=== PATIENT | male | born 1995 | race Caucasian/White ===

== ENCOUNTER 2018-12-03 06:25 | Day surgery (SDC) | payer OTHER ==
[~2018-12-03] VITALS: Ht 182.9 cm; Wt 93.0 kg
[2018-12-03] MEDS ORDERED: PHENYLEPHRINE 10 MG/ML VIAL ONE (08:24)
[2018-12-03] MEDS ORDERED: NEOMYCIN/POLYMYXIN/BACITRACIN OIN 15 GM TUBE TP ONE ×2 (08:24→08:44)
[2018-12-03] MEDS ORDERED: LIDOCAINE 1% 500 MG/50 ML VIAL ONE (08:24)
--- NOTE | 2018-12-03 08:34 | NUR ---
COOL AEROSOL AT 28% TO AEROSOL MASK SET UP IN PACU TESTED FUNCTIONING WELL
[2018-12-03] MEDS ORDERED: PHENYLEPHRINE 1% 15 ML BTL NS ONE (08:35)
[2018-12-03] MEDS ORDERED: guaiFENesin DM 200/20 MG-10 ML 10 ML UDC PO PRN (08:40)
[2018-12-03] MEDS ORDERED: PROMETHAZINE 25 MG/ML VIAL IVP PRN (08:40)
[2018-12-03] MEDS ORDERED: ACETAMIN/CODEINE 120/12MG-5ML 5 ML UDC PO PRN (08:40)
[2018-12-03] MEDS ORDERED: MEPERIDINE 50 MG/ML SYR IVP PRN (08:40)
[2018-12-03] MEDS ORDERED: SUCCINYLCHOLINE CHLORIDE 200 MG/10 ML VIAL IVP ONE (08:47)
[2018-12-03] MEDS ORDERED: PROPOFOL 200 MG/20 ML VIAL IV ONE (08:47)
[2018-12-03] MEDS ORDERED: LABETALOL 100 MG/20 ML VIAL ONE (08:47)
[2018-12-03] MEDS ORDERED: DEXAMETHASONE 4 MG/ML VIAL ONE (08:47)
[2018-12-03] MEDS ORDERED: LIDOCAINE 2% 100 MG/5 ML SYR IVP ONE (08:47)
[2018-12-03] MEDS ORDERED: DESFLURANE 240 ML BTL INH ONE (08:47)
[2018-12-03] MEDS ORDERED: fentaNYL 0.05 MG/ML VIAL ONE (09:06)
[2018-12-03] MEDS ORDERED: MIDAZOLAM 2 MG/2 ML VIAL ONE (09:06)
[2018-12-03] MEDS ORDERED: DEXAMETHASONE 10 MG/ML VIAL ONE (09:09)
[2018-12-03] MEDS ORDERED: LEVOFLOXACIN 500 MG/D5W PREMIX 100 ML IV ONE (09:24)
[2018-12-03] MEDS ORDERED: LIDOCAINE/EPI MPF 1%1:200000 30 ML VIAL INJ ONE (09:27)
[2018-12-03] MEDS ORDERED: ONDANSETRON 4 MG/2 ML VIAL IVP PRN (09:30)
[2018-12-03] MEDS ORDERED: HYDROmorphone 1 MG/ML AMP IVP PRN (09:30)
== END 2018-12-03 14:02 | disposition home or self-care (01) ==
LOC: MDS 06:25 → MMU 06:29 → MDS 14:02
PROVIDERS: ATTEND Otolaryngology
DX: J31.0 Chronic rhinitis (principal); J34.3 Hypertrophy of nasal turbinates; J34.2 Deviated nasal septum; J33.8 Other polyp of sinus; F17.210 Nicotine dependence, cigarettes, uncomplicated; Z88.0 Allergy status to penicillin
CPT/HCPCS: 30140; 30520; 31237; 31240; 88304; J0330; J1100; J1956; J2001; J2250; J2704; J3010; J3490; J2370

== ENCOUNTER 2018-12-10 19:46 | Inpatient (IN) | payer OTHER ==
[~2018-12-10] VITALS: Ht 182.9 cm; Wt 82.6 kg
[2018-12-10 19:49] VITALS: BP 117/64
--- NOTE | 2018-12-10 20:00 | NUR ---
FIRST CONTACT PATIENT PARESH FROM [facility] FOR ENT CARE. PATIENT WAS SEEN AT HERE AT [facility] 1 WEEK AGO FOR POLYP REMOVAL. PATIENT STARTED EXPERIENCING BILAT EPISTAXIS X 30MIN STARTING AT 1530. PER REPORT PATIENT HAD APPROXIMATELY 1 UNIT OF VOMIT AND 1 UNIT OF IN SUCTION CANISTER. PATIENT IS NOTED TO ARRIVE WITH BILAT RHINO-ROCKET TO BOTH NARES SOAKED IN TXA, BLEEDING APPEARS TO BE CONTROLLED AT THIS TIME. PATIENT WAS ALSO GIVEN TXA IV. PATIENT CURRENTLY VITALS ARE STABLE, BP NORMAL-TENSIVE MAP 76, NOT TACHY, NO WORK OF BREATHING. PATIENT DENIES ANY DIZZINESS. PATIENT GCS 15, AAOX4. PATIENT TRANSFERRED FROM EMS [facility] TO ER [facility] WITHOUT ASSISTANCE. PATIENT CHANGED INTO HOSIPTAL GOWN. PATIENT HR 70-80 BPM, ON CM, NO ECTOPY NOTED. PATIENT DENIES ANY CP/SOB, NO N/V/D. IV EST BY [facility]. 18G TO LAC, C/D/P. NO ACUTE DISTRESS NOTED, DR HARO MADE AWARE, BED IN LOWET POSITION, SIDE RAILS UP X 2 FOR SAFETY WILL CONTINUE TO MONITOR
[2018-12-10 20:47] LABS: BASOPHILS % (AUTO) 0.2 % (0.0-2.0); EOSINOPHILS % (AUTO) 0.1 % (0.0-4.0); HEMATOCRIT 28.6 % (36-52); LYMPHOCYTES # (AUTO) 0.6 K/uL (2.0-11.5); MEAN CORPUSCULAR HEMOGLOBIN 31 pg (27-31); MEAN CORPUSCULAR HGB CONC 35 g/dL (33-37); MEAN CORPUSCULAR VOLUME 87.7 fL (80-94); MONOCYTES # (AUTO) 0.4 K/uL (0.8-1.0); MONOCYTES % (AUTO) 3.1 % (1.7-9.3); NEUTROPHILS # (AUTO) 10.5 K/uL (1.8-7.7); PLATELET COUNT (AUTO) 225 K/uL (140-450); RED BLOOD CELL COUNT(AUTO) 3.26 MIL/uL (4.20-6.10); RED CELL DISTRIBUTION WIDTH 12.4 % (11.6-13.7); WHITE BLOOD COUNT (AUTO) 11.5 K/uL (4.8-10.8)
[2018-12-10 20:58] LABS: CARBON DIOXIDE 25.1 mmol/L (21-32); CREATININE 0.9 mg/dL (0.7-1.3); NEUTROPHILS % (AUTO) 91.1 % (42.2-75.2); POTASSIUM 4.1 mmol/L (3.5-5.1)
[2018-12-10 20:59] LABS: LYMPHOCYTES % (AUTO) 5.5 % (20.5-51.1)
[2018-12-10 21:05] LABS: ALBUMIN 3.3 g/dL (3.4-5.0); TOTAL BILIRUBIN 0.3 mg/dL (0.0-1.0)
[2018-12-10 21:14] LABS: PROTHROMBIN TIME 9.9 secs (10.8-13.4)
--- NOTE | 2018-12-10 21:16 | NUR ---
Patient being evaluated by physician at bedside.
[2018-12-10] MEDS ORDERED: LORazepam 2 MG/ML VIAL IVP ONE (21:20)
[2018-12-10] MEDS ORDERED: MORPHINE SULFATE 4 MG/ML SYR IVP ONE (21:20)
[2018-12-10] MEDS ORDERED: LORazepam 1 MG TAB PO ONE (21:20)
[2018-12-10] MEDS ORDERED: ONDANSETRON 4 MG/2 ML VIAL IVP PRN (21:50)
[2018-12-10] MEDS ORDERED: guaiFENesin/CODEINE 100/10MG 5 ML UDC PO PRN (21:50)
--- NOTE | 2018-12-10 22:03 | NUR ---
DR GONZÁLES AT BEDSIDE
[2018-12-10 22:30] VITALS: BP 125/86
--- NOTE | 2018-12-10 22:30 | NUR ---
RECEIVED PT FROM ER NURSE, MARYLOU. PT CAME IN [facility] AND ABLE TO AMBULATE TO [facility] BED. AAOX4, NO S/S OF SOB OR ANY RESP DISTRESS NOTED ON RA. DX POST OP EPISTAXIS, PT NOSE FILLED WITH COTTON BALL AND NO ACTIVE BLOOD NOTED AT THIS TIME. PT C/O PAIN ON NOSE, 01/06. WILL MEDICATE. SKIN WARM AND DRY TO TOUCH. IV SITE ON L AC, 18G, PATENT, INTACT, ASYMPTOMATIC. POC REVIEWED AND DISCUSSED WITH PT. PT VERBALIZED UNDERSTANDING. BED IN LOW POSITION, CALL LIGHT WITHIN REACH AND ENCOURAGE TO USE.
--- NOTE | 2018-12-10 22:32 | NUR ---
Patient will be admitted to care of DR MC. Admited to MS. Will go to room 106A. Belongings list completed. Report to SEKOU ROSALES.
[2018-12-10 22:52] LABS: HEMATOCRIT 30.3 % (36-52)
[2018-12-10 23:01] LABS: HEMOGLOBIN 10.6 g/dL (12.0-18.0)
--- NOTE | 2018-12-10 23:15 | NUR ---
PAGE DR. MC TO VERIFY BLOOD TRANSFUSION ORDER D/T PT'S HGB LEVEL IS 10.0 IN ER AND WENT UP TO 10.6 NOW.
--- NOTE | 2018-12-10 23:22 | NUR ---
DR. MC CALL BACK AND REPORT PT'S HGB LEVEL. ASKED IF THERE IS ACTIVE BLOOD AND I REPORTED NO ACTIVE BLOOD NOTED. D/C BLOOD TRANSFUSION ORDER.
[2018-12-10] MEDS: MORPHINE SULFATE 2 MG/ML SYR IVP PRN (23:32)
--- NOTE | 2018-12-10 23:32 | NUR ---
PT C/O NOSE PAIN 01/06. GIVEN MORPHINE ORDERED. PT TOLERATED WELL. WILL CONTINUE TO MONITOR.
--- NOTE | 2018-12-11 02:05 | NUR ---
PT SLEEPING IN BED COMFORTABLY. NO S/S OF SOB OR ANY RESP DISTRESS NOTED. BED IN LOW POSITION, CALL LIGHT WITHIN REACH.
[2018-12-11] MEDS: LORazepam 2 MG/ML VIAL IVP PRN (03:58)
--- NOTE | 2018-12-11 03:58 | NUR ---
PT C/O ANXIETY. GIVEN ATIVAN ORDERED. PT TOLERATED WELL. WILL CONTINUE TO MONITOR.
--- NOTE | 2018-12-11 05:22 | NUR ---
PT AWAKE IN BED. NO S/S OF ACUTE DISTRESS NOTED. WILL CONTINUE TO MONITOR.
[2018-12-11] MEDS: MORPHINE SULFATE 2 MG/ML SYR IVP PRN ×2 (07:07→15:15)
--- NOTE | 2018-12-11 07:24 | NUR ---
RECEIVED BEDSIDE REPORT FROM CONNIE SAPP. PT STABLE, SLEEPING, BUT EASILY AROUSABLE. NO SIGNS OF DISTRESS NOTED. NO REDNESS, SWELLING, OR INFLAMMATION NOTED IN IV SITE. NO EPISTAXIS NOTED, RHINO ROCKET IN PLACE. CALL [place]O WITHIN REACH. BED IN LOWEST POSITION. SAFETY MEASURES IN PLACE. PLAN OF CARE REVIEWED.
--- NOTE | 2018-12-11 07:25 | NUR ---
ENDORSED PT TO DAY SHIFT NURSE. PT IN STABLE CONDITION.
[2018-12-11] MEDS: NACL 0.9% 1,000 ML IV SCH (07:50)
--- NOTE | 2018-12-11 07:50 | NUR ---
DR MC AT THE BEDSIDE. RECEIVED VERBAL ORDER FROM DR MC TO CHANGE PT'S DIET TO SOFT DIET, IVF NS AT 40ML/HR, AND H&H LAB DRAW. WILL PUT IN ORDER.
[2018-12-11 08:00] VITALS: BP 124/73
--- NOTE | 2018-12-11 08:02 | NUR ---
PATIENT HAS BEEN SCREENED AND CATEGORIZED LOW NUTRITION RISK. PATIENT WILL BE SEEN WITHIN 7 DAYS OF ADMISSION. 12/17/[address]
[2018-12-11 08:53] LABS: HEMATOCRIT 27.8 % (36-52); HEMOGLOBIN 9.7 g/dL (12.0-18.0)
--- NOTE | 2018-12-11 09:30 | NUR ---
PT STABLE, SLEEPING, BUT EASILY AROUSABLE. CHEST RISE AND FALL VISIBLY NOTED.
--- NOTE | 2018-12-11 11:30 | NUR ---
PT AWAKE, SITTING UP IN BED, WORKING ON HIS LAPTOP. NO OTHER NEEDS AT THIS TIME.
--- NOTE | 2018-12-11 12:15 | NUR ---
PT STABLE, EATING LUNCH. NO SIGNS OF BLEEDING NOTED. WILL CONTINUE TO MONITOR.
--- NOTE | 2018-12-11 14:25 | NUR ---
PT STABLE, SLEEPING, BUT EASILY AROUSABLE. NO SIGNS OF DISTRESS NOTED. WILL CONTINUE TO MONITOR.
--- NOTE | 2018-12-11 15:17 | NUR ---
ADMINISTERED PRN MORPHINE FOR 10/10 NASAL AND THROAT PAIN. PT TOLERATED WELL. WILL CONTINUE TO MONITOR. FAMILY AT THE BEDSIDE.
[2018-12-11 16:00] VITALS: BP 127/69
--- NOTE | 2018-12-11 16:30 | NUR ---
VITAL SIGNS TAKEN, PT STABLE. PT DENIES ANY PAIN OR SOB. WILL CONTINUE TO MONITOR.
--- NOTE | 2018-12-11 17:20 | NUR ---
PT STABLE, SLEEPING, BUT EASILY AROUSABLE. NO SIGNS OF DISTRESS NOTED. CHEST RISE AND FALL VISIBLY NOTED.
--- NOTE | 2018-12-11 19:15 | NUR ---
ENDORSED PT TO RN SUMMER FOR CONTINUITY OF CARE. PT STABLE.
--- NOTE | 2018-12-11 19:30 | NUR ---
RECEIVED BEDSIDE REPORT FROM DAY SHIFT RN, PATIENT IN BED, ON RA, NO SIGNS OF ACUTE DISTRESS, BOTH NARES ARE OCCULTED WITH DRIED BLOOD, NASAL TUBES IN PLACE. PATIENT DENIES PAIN AT THIS TIME. IV IN LEFT AC 18 G INFUSING NS AT 40 ML/HR. CALL LIGHT WITHIN REACH WILL CONTINUE TO MONITOR
--- NOTE | 2018-12-11 22:00 | NUR ---
PATIENT RESTING IN BED CALL LIGHT WITHIN REACH
[2018-12-11 22:31] LABS: HEMOGLOBIN 8.8 g/dL (12.0-18.0)
--- NOTE | 2018-12-11 23:22 | NUR ---
CALL FROM DOCTOR MC REGARDING PATIENT STATUS, NOTIFIED DR OF THAT H&H ARE TRENDING DOWN. NOTIFIED TO CONTINUE TO MONITOR.
[2018-12-12] VITALS: BP 124/59
[2018-12-12] MEDS: LORazepam 2 MG/ML VIAL IVP PRN ×2 (00:17→20:48)
--- NOTE | 2018-12-12 00:20 | NUR ---
PATIENT C/O ANXIETY WILL GIVEN ATIVAN
[2018-12-12] MEDS: NACL 0.9% 1,000 ML IV SCH (02:46)
--- NOTE | 2018-12-12 02:46 | NUR ---
STARTED NEW BAG NS AT 40 ML/HR. NOTED SLIGHT BLEEDING AROUND NOSE, EXPLAINED TO PATIENT NOT TOUCH NOSE
--- NOTE | 2018-12-12 04:30 | NUR ---
PATIENT SLEEPING IN BED NO SIGNS OF DISTRESS
--- NOTE | 2018-12-12 05:56 | NUR ---
PATIENT REFUSING LABS DUE TO BEING POKED TOO MUCH
--- NOTE | 2018-12-12 06:33 | NUR ---
CALLED DR MC REGARDING PATIENT NOT HAVING BM IN A WEEK. NO ANSWER
--- NOTE | 2018-12-12 07:24 | NUR ---
RECEIVED BEDSIDE REPORT FROM CONNIE MCCORD. PT STABLE, SLEEPING, BUT EASILY AROUSABLE. NO SIGNS OF DISTRESS NOTED. NO REDNESS, SWELLING, OR INFLAMMATION NOTED ON IV SITE. NO EPISTAXIS NOTED, RHINO ROCKET IN PLACE. FAMILY AT THE BEDSIDE. CALL [place]O WITHIN REACH. BED IN LOWEST POSITION. SAFETY MEASURES IN PLACE. PLAN OF CARE REVIEWED.
--- NOTE | 2018-12-12 07:25 | NUR ---
ENDORSED PATIENT TO DAY SHIFT NURSE FOR CONTINUITY OF CARE. PATIENT STABLE.
[2018-12-12 08:00] VITALS: BP 134/80
--- NOTE | 2018-12-12 09:15 | NUR ---
PT STABLE, SLEEPING, BUT EASILY AROUSABLE. NO SIGNS OF DISTRESS NOTED.
--- NOTE | 2018-12-12 10:10 | NUR ---
RECEIVED TELEPHONE ORDER FROM DR MC FOR COLACE 100MG PO BID FOR PT C/O CONSTIPATION. WILL PUT IN ORDER.
[2018-12-12 10:28] LABS: HEMATOCRIT 23.9 % (36-52); HEMOGLOBIN 8.6 g/dL (12.0-18.0)
[2018-12-12] MEDS ORDERED: DOCUSATE SODIUM 100 MG GELCAP PO SCH (11:00)
--- NOTE | 2018-12-12 11:40 | NUR ---
DR MC AT BEDSIDE. RECEIVED VERBAL ORDER FOR PRBCS 2 UNITS AND TYPE AND SCREEN. WILL PUT IN ORDER.
--- NOTE | 2018-12-12 11:46 | NUR ---
ADMINISTERED SCHEDULED MEDICATION, PT TOLERATED WELL. NO OTHER NEEDS AT THIS TIME.
--- NOTE | 2018-12-12 13:50 | NUR ---
PAGED DR MC.
--- NOTE | 2018-12-12 14:43 | NUR ---
PT SIGNED CONSENT FOR BLOOD TRANSFUSION.
--- NOTE | 2018-12-12 15:00 | NUR ---
RECEIVED TELEPHONE ORDER FROM DR MC FOR DULCOLAX 10MG SUPPOSITORY ONCE FOR PT'S C/O CONSTIPATION. WILL PUT IN ORDER. Addendum: 12/12/18 at 1712 by Claire Huynh RN MADE DR MC AWARE THAT HAS TO SIGN CONSENT IN ORDER FOR BLOOD TO BE RELEASED. PER DR MC, HE WILL COME BACK TO THE UNIT IN A FEW HOURS TO SIGN CONSENT.
[2018-12-12 16:00] VITALS: BP 123/75
--- NOTE | 2018-12-12 16:10 | NUR ---
RECEIVED CALL FROM LAB THAT BLOOD IS READY FOR TRANSFUSION. AWAITING FOR DR MC TO SIGN CONSENT.
[2018-12-12] MEDS ORDERED: BISACODYL 10 MG SUPP RC SCH (16:30)
--- NOTE | 2018-12-12 17:10 | NUR ---
ADMINISTERED SCHEDULED DULCOLAX, PT TOLERATED WELL. NO OTHER NEEDS AT THIS TIME. FAMILY AT THE BEDSIDE.
--- NOTE | 2018-12-12 18:48 | NUR ---
DR MC AT THE BEDSIDE. SIGNED CONSENT FOR BLOOD TRANSFUSION.
--- NOTE | 2018-12-12 19:05 | NUR ---
1 UNIT PRBC TRANSFUSION STARTED, VERIFIED WITH CONNIE GOETZ. VITAL SIGNS TAKEN, PT STABLE. BP 130/71, DENIES PAIN, TEMP 98.5, HR 101 AND RR 18. WILL CONTINUE TO MONITOR.
--- NOTE | 2018-12-12 19:20 | NUR ---
VITAL SIGNS TAKEN, PT STABLE. NO BLOOD TRANSFUSION REACTION NOTED. WILL CONTINUE TO MONITOR. FAMILY AT THE BEDSIDE.
--- NOTE | 2018-12-12 19:25 | NUR ---
ENDORSED PT TO CONNIE MARRUFO FOR CONTINUITY OF CARE. PT STABLE.
--- NOTE | 2018-12-12 19:26 | NUR ---
RECEIVED BEDSIDE REPORT FROM AM SHIFT PT AWAKE, A O X 4, AMBULATORY. NO SIGNS OF DISTRESS NOTED. W/ ONGOING 1ST UNIT OF PRBC LAC G 18,PATENT AND INTACT. WITH CRUSTED/DRIED DARK RED BLOOD ON BOTH NOSTRILS NOTED, RHINO ROCKET IN PLACE. FAMILY AT THE BEDSIDE. CALL [place]O WITHIN REACH. BED IN LOWEST POSITION. SAFETY MEASURES IN PLACE. PLAN OF CARE REVIEWED.
[2018-12-12 20:00] VITALS: BP 135/79
[2018-12-12] MEDS: DOCUSATE SODIUM 100 MG GELCAP PO SCH (21:00)
--- NOTE | 2018-12-12 21:00 | NUR ---
PT HAD 2X EPISODE OF BM JUST RECENTLY, COLACE HELD. W/ ONGOING PRBC ONGOING
[2018-12-12] MEDS ORDERED: NACL 0.9% 1,000 ML IV SCH (21:50)
--- NOTE | 2018-12-12 22:00 | NUR ---
DONE W/ 1ST UNIT OF PRBC VS 98.6, HR 96 18, 130/70, 0/10
--- NOTE | 2018-12-12 22:39 | NUR ---
39 MINS AFTER POST 1 UNIT TRANSFUSION . TEMP 101.[address] MC. ABOUT TO START THE 2ND UNIT LAST ONE BUT WILL CALL DR. MURILLO Addendum: 12/12/18 at 2247 by Martina De La Torre RN TEM[P 101. 7 FEBRILE
--- NOTE | 2018-12-12 22:49 | NUR ---
COOLING MEASURES X 30 MINS, ARMPITS, AND FOREHEAD
--- NOTE | 2018-12-12 23:22 | NUR ---
DR. MC CALLED BACK, SPOKE WITH HIM RE: 101.7. FEBRILE 39 MINS AFTER 1 UNIT PRBC. TO CONTINUE WITH 2ND UNIT AFTER GIVING TYLENOL. ORDERED TYLENOL AND BENADRYL PRN
[2018-12-12] MEDS ORDERED: ACETAMINOPHEN 325 MG TAB PO PRN (23:30)
--- NOTE | 2018-12-12 23:55 | NUR ---
15 MINS PRETRANSFUSION 98.6 AFEBRILE 97 HR, 18, 117/70, 0/10.
--- NOTE | 2018-12-12 23:56 | NUR ---
VERIFIED AND CHECKED PATIENT BY CHARGE NURSE,TO GO AHEAD TO GET THE BLOOD
--- NOTE | 2018-12-13 00:04 | NUR ---
TOOK THE 2ND PRBC FROM LAB,LAB ISSUED IT AND VERIFIED W/ CALCINER FEEDER
--- NOTE | 2018-12-13 00:10 | NUR ---
STARTED 2ND UNIT OF PRBC AT THIS TIME. PTS VS 98.6, AFEBRILE 97, 18, 118/70, 04/08
--- NOTE | 2018-12-13 02:55 | NUR ---
ENDED PRBC 2ND UNIT, VS 98.1, 103, 18, 122/71, 0/10 AFEBRILE. PT SLEEPING COMFORTABLY
[2018-12-13 04:00] VITALS: BP 119/70
--- NOTE | 2018-12-13 07:25 | NUR ---
ENDORSED TO NEXT SHIT FOR CONTINUITY OF CARE, PT IN STABLE CONDITION AT HIS TIME Addendum: 12/13/18 at 0728 by Martina De La Torre RN SHIFT
--- NOTE | 2018-12-13 07:26 | NUR ---
PT RESTING IN BED SLEEPING WITH BREATHING UNLABORED BREATHING THROUGH MOUTH WITH NO DISTRESS. PT HAS RHINO ROCKET IN NOSE WITH NO ACTIVE DRAINAGE. PT EASILY AWAKENED BY NAME AOX4 WITH ALL SAFETY MEASURES IN PLACE. PT HAS LEFT ANTECUBITAL IV THAT IS INFUSING NS AT 40ML/HR. PT HAS TWO VISITORS AT BEDSIDE AT THIS TIME. PT AND VISITORS DECLINE ANY REQUESTS AT THIS TIME.
[2018-12-13 08:00] VITALS: BP 123/77
[2018-12-13] MEDS: DOCUSATE SODIUM 100 MG GELCAP PO SCH ×2 (09:00→20:14)
--- NOTE | 2018-12-13 09:06 | NUR ---
RECEIVED TORB FOR HEMOGLOBIN AND HEMATOCRIT BLOOD ORDER BY DR MC.
--- NOTE | 2018-12-13 09:18 | NUR ---
PT RESTING IN BED BREATHING UNLABORED NO SIGNS DISTRESS VISITORS (2) AT BEDSIDE.
[2018-12-13] MEDS: NACL 0.9% 1,000 ML IV SCH ×2 (09:20→14:01)
--- NOTE | 2018-12-13 09:20 | NUR ---
PT REPORTS 2 BOWEL MOVEMENTS WITHIN LAST 24 HOURS. DID NOT ADMINISTER COLACE.
--- NOTE | 2018-12-13 10:06 | NUR ---
PT SLEEPING IN BED BREATHING UNLABORED AND WITHOUT DISTRESS. PT 2 VISITORS STILL AT BEDSIDE.
--- NOTE | 2018-12-13 11:30 | NUR ---
PT MOTHER AT BEDSIDE. PT REQUESTING HE DOES NOT RECEIVE ATIVAN AGAIN BECAUSE IT MAKES HIM TOO TIRED. PT STATES HIS MOTHER CAN TALK AND HEAR ABOUT HIS MEDICAL CONDITION. EXPLAINED TO THEM HE RECEIVED THE UNITS OF PRBC AND IS AWAITING HEMOGLOBIN AND HEMATOCRIT LAB RESULTS AT THIS TIME. NO OTHER REQUESTS OR DISTRESS.
[2018-12-13 12:36] LABS: HEMATOCRIT 29.5 % (36-52)
[2018-12-13 12:41] LABS: HEMOGLOBIN 10.2 g/dL (12.0-18.0)
--- NOTE | 2018-12-13 13:26 | NUR ---
SPOKE TO DR MC AND UPDATED HIM TO HEMOGLOBIN AND HEMATOCRIT LEVEL. HE ORDERED HE TO CHANGE IVF RATE TO 30 FROM 40.
--- NOTE | 2018-12-13 13:35 | NUR ---
PT RESTING IN BED WITH HEADPHONES ON DENIES ANY REQUESTS, MOTHER STILL AT BEDSIDE. NO SIGNS OF DISTRESS.
--- NOTE | 2018-12-13 14:14 | NUR ---
BROUGHT ICE AND WATER FOR PATIENT AND PATIENT MOTHER AT BEDSIDE PER HER REQUEST. NO OTHER REQUESTS, PT SLEEPING IN BED NO SIGNS OF DISTRESS BREATHING UNLABORED.
--- NOTE | 2018-12-13 15:52 | NUR ---
ADMINISTERED TYLENOL PER PATIENT REQUEST DUE TO REPORTED HEADACHE. PT ALSO REQUESTING HEATED BLANKET I AM BRINGING HIM. NO OTHER REQUESTS.
[2018-12-13 15:58] VITALS: BP 111/54
--- NOTE | 2018-12-13 16:50 | NUR ---
PT SLEEPING IN BED BREATHING UNLABORED MOTHER AND FEMALE VISITOR AT BEDSIDE. INFORMED THEM TO NOTIFY ME IF PATIENT IS COMPLAINING OF DISCOMFORT OR PAIN WHEN HE AWAKES.
--- NOTE | 2018-12-13 17:34 | NUR ---
BROUGHT WATER AND ICE FOR PATIENT MOTHER AND FEMALE VISITOR AT THIS TIME. PT SLEEPING IN BED BREATHING UNLABORED AND SYMMETRICAL.
--- NOTE | 2018-12-13 19:32 | NUR ---
GAVE BEDSIDE REPORT TO NIGHT NURSE PT IN STABLE CONDITION.
--- NOTE | 2018-12-13 19:33 | NUR ---
RECEIVED BEDSIDE REPORT FROM DAY SHIFT RN JIM. PT A/O X4. DISCUSSED PLAN OF CARE. VERBALIZED UNDERSTANDING. ABLE TO MAKE NEEDS KNOWN. STANDARD PRECAUTIONS. ROOM AIR. NO SIGNS OF RESP DISTRESS. PACKING DONE BY DR IN BILATERAL NOSTRILS. DRY BLOOD AROUND NOSTRILS. SKIN IS INTACT. L AC 18 G INFUSING NS @30. PATENT AND INTACT. ABLE TO AMBULATE WITHOUT ASSIST. STEADY GAIT. BED IN LOW POSITION. CALL LIGHT WITHIN REACH. WILL CONTINUE TO MONITOR.
--- NOTE | 2018-12-13 20:52 | NUR ---
ADMINISTERED MEDS SCHEDULED. EDUCATED ON SIDE EFFECTS. VERBALIZED UNDERSTANDING. TOLERATED WELL. DENIES PAIN AT THIS TIME. WILL CONTINUE TO MONITOR. FATHER AT BEDSIDE.
[2018-12-13] MEDS: MORPHINE SULFATE 2 MG/ML SYR IVP PRN (23:00)
--- NOTE | 2018-12-13 23:01 | NUR ---
PT REQUESTED MORPHINE PRN. 7/10 ADULT PAIN SCALE. VITALS TAKEN 123/68 PULSE 84 RESP 18 O2 SAT 98 TEMP 99.1 AUXILIARY. MEDICATED WITH MORPHINE 2MG PRN. EDUCATED ON SIDE EFFECTS. VERBALIZED UNDERSTANDING. WILL CONTINUE TO MONITOR. FATHER AT BEDSIDE.
[2018-12-14] VITALS: BP 123/68
--- NOTE | 2018-12-14 01:09 | NUR ---
PT IS SLEEPING. EASILY AROUSABLE. EVEN CHEST RISE. NO DIFFICULTY BREATHING. NO SIGNS OF RESP DISTRESS. WILL CONTINUE TO MONITOR.
[2018-12-14] MEDS: LORazepam 2 MG/ML VIAL IVP PRN (01:36)
--- NOTE | 2018-12-14 01:41 | NUR ---
PT REQUESTED ATIVAN. STATES HE IS UNABLE TO SLEEP. FEELS RESTLESS. MEDICATED WITH ATIVAN PRN 1MG IVP. EDUCATED ON SIDE EFFECTS. VERBALIZED UNDERSTANDING. TOLERATED WELL. WILL CONTINUE TO MONITOR.
[2018-12-14] MEDS: NACL 0.9% 1,000 ML IV SCH ×2 (02:00→10:03)
--- NOTE | 2018-12-14 03:12 | NUR ---
PT IS SLEEPING IN BED EASILY AROUSABLE. DENIES PAIN. NO SIGNS OF DISTRESS NOTED. FATHER AT BEDSIDE.
--- NOTE | 2018-12-14 05:11 | NUR ---
REQUESTED WATER. REPOSITIONED IN BED. FATHER AT BEDSIDE. NO SIGNS OF DISTRESS OR DISCOMFORT. DENIES PAIN. WILL CONTINUE TO MONITOR.
--- NOTE | 2018-12-14 06:17 | NUR ---
WILL ENDORSE PT TO DAY SHIFT RN. PT IS IN STABLE CONDITION. A/O X 4 ABLE TO MAKE NEEDS KNOWN. CALL LIGHT WITHIN REACH.
--- NOTE | 2018-12-14 07:20 | NUR ---
RECEIVED PT FROM CASE MANAGEMENT ASSISTANT NURSE, PT IS SLEEPING WITH FATHER ON THE BEDSIDE, SIDE RAILS ARE UP AND CALL LIGHT WITHIN REACH, PT HAS AN IV LINE ON THE LEFT AC G. 18 WITH NS AT 30ML/HR INFUSING, PT HAS A PACKING IN THE NOSTRILS FOR THE S/P POLYS REMOVAL SURGERY LAST FRIDAY, RESPIRATION IS EVEN AND NO SIGN OF DISTRESS NOTED AND WILL MONITOR PT.
--- NOTE | 2018-12-14 07:50 | NUR ---
PT IS AWAKE AND VITAL SIGNS CHECKED, BP IS 122/69, PULSE IS 95, O2 SATURATION IS 98%, TEMPERATURE IS 97.4, RESPIRATION IS 18/MIN AND BNO SIGN OF DISTRESS NOTED, PT DENIES PAIN AND NO SOB NOTED. WILL CONTINUE TO MONITOR PT.
[2018-12-14 08:00] VITALS: BP 122/69
[2018-12-14] MEDS: DOCUSATE SODIUM 100 MG GELCAP PO SCH (10:02)
--- NOTE | 2018-12-14 10:03 | NUR ---
PT IS AWAKE AND FATHER ON THE BEDSIDE, ORAL MEDICATIONS WAS GIVEN AND IVF BAG WAS CHANGED WELL. WILL MONITOR PT.
--- NOTE | 2018-12-14 10:37 | NUR ---
DR. MC CALLED AND MADE A TELEPHONE ORDER FOR A HEMATOCRIT AND HEMOGLOBIN LAB FOR THE PT, ORDER READ BACK AND VERIFIED. WILL CARRY OUT MD ORDER.
--- NOTE | 2018-12-14 12:49 | NUR ---
DR. MC CAME AND SAW PT AND MADE A VERBAL ORDER TO DISCHARGE PT AND FOLLOW UP IN CLINIC ON SUNDAY, DECEMBER 17 FOR THE REMOVAL OF THE NASAL PACKING. DR. MC ORDERED NOT TO TOUCH THE PACKING AND JUST CLEAN THE SIDE IF THER WILL BE BLOOD AND APPLIED MOISTURIZER TO PT'S LIPS, ACKNOWLEDGED AND WILL CARRY OUT MD ORDER.
--- NOTE | 2018-12-14 13:00 | NUR ---
INFORMED PT OF THE DISCHARGE PLAN TODAY, WITH PARENTS ON THE BEDSIDE AND GAVE TEACHINGS AND INSTRUCTIONS REGARDING FOLLOW UP WITH DR. MC ON AND PT VERBALIZED UNDERSTANDING
[2018-12-14 14:30] VITALS: BP 123/70
--- NOTE | 2018-12-14 14:30 | NUR ---
DISCHARGED PT TO HOME ACCOMPANIED BY PARENTS, TEACHINGS AND INSTRUCTIONS GIVEN TO PT AND VERBALIZED UNDERSTANDING. IV LINE AND ARM BANDS REMOVED. PT IS STABLE AT THIS TIME WITH NASAL PACKING IN PLACE.
[2018-12-14 17:34] LABS: HEMATOCRIT 30.4 % (36-52); HEMOGLOBIN 10.5 g/dL (12.0-18.0)
== END 2018-12-14 14:30 | disposition home or self-care (01) | DRG 921 ==
LOC: MED 19:46 → MTU 22:03
PROVIDERS: ADMIT Otolaryngology; ATTEND Otolaryngology
PROC: 2Y41X5Z Packing of Nasal Region using Packing Material (ICD-10-PCS; 2018-12-10)
PROC: 30233N1 Transfusion of Nonautologous Red Blood Cells into Peripheral Vein, Percutaneous Approach (ICD-10-PCS; principal; 2018-12-12)
DX: J95.831 Postprocedural hemorrhage of a respiratory system organ or structure following other procedure (principal); Y83.8 Other surgical procedures as the cause of abnormal reaction of the patient, or of later complication, without mention of misadventure at the time of the procedure; R04.0 Epistaxis; D64.9 Anemia, unspecified; Z80.0 Family history of malignant neoplasm of digestive organs; Z83.3 Family history of diabetes mellitus; Z88.0 Allergy status to penicillin
CPT/HCPCS: 36415; 80053; 85018; 85025; 85610; 85730; 86886; 86900; 86901; 86920; 87081; 96374; 96375; 99285; J2060; J2270; J7030; P9016